=== PATIENT | female | born 2000 | race Caucasian/White ===

== ENCOUNTER 2018-05-22 03:12 | Emergency (ER) | payer BC ==
--- NOTE | 2018-05-22 03:41 | EDPHY ---
H & P Stated Complaint: hyperglycemic, ETOH Time Seen by Provider: 05/22/18 03:17 HPI/ROS: Chief Complaint: Alcohol intoxication, hyperglycemia HPI: 18-year-old type 1 diabetic was out drinking tonight with friends. Patient was feeling unwell in EMS was called. On arrival they noted that her blood sugar was 490. The patient gave herself 8 units of NovoLog. 20 min later her blood sugar was down at about 420. EMS brought her in for further evaluation. The patient admits she does not drink very frequently. She normally carb counts but cannot tell me her ratios at this time. She is taking NovoLog and Lantus. She has never been to the hospital because of her diabetes. She has never been in DKA. ROS: 10 point Review of Systems is negative except as noted in the HPI. PMH: Type 1 diabetes Social History: No smoking, occasional alcohol, no recreational drug use Family History: non-contributory Physical Exam: Gen: Awake, Alert, smells of alcohol, slurred speech HEENT: Nose: no rhinorrhea Eyes: PERRLA, EOMI Mouth: Moist mucosa Neck: Supple, no JVD Chest: nontender, lungs clear to auscultation Heart: S1, S2 normal, no murmur Abd: Soft, non-tender, no guarding Back: no CVA tenderness, no midline tenderness Ext: no edema, non-tender Skin: no rash Neuro: CN II-XII intact, Sensation grossly intact, Strength 5/5 in bilateral upper and lower extremities - Personal History LMP (Females 10-55): 15-21 Days Ago Current Tetanus/Diphtheria Vaccine: Yes - Medical/Surgical History Hx Asthma: No Hx Chronic Respiratory Disease: No Hx Diabetes: Yes Hx Cardiac Disease: No Hx Renal Disease: No Hx Cirrhosis: No Hx Alcoholism: No Hx HIV/AIDS: No Hx Splenectomy or Spleen Trauma: No Other PMH: DM - Social History Smoking Status: Never smoked Constitutional: Initial Vital Signs Temperature (C) 36.7 C 05/22/18 03:15 Heart Rate 96 05/22/18 03:15 Respiratory Rate 16 05/22/18 03:15 Blood Pressure 147/98 H 05/22/18 03:15 O2 Sat (%) 94 05/22/18 03:15 O2 Delivery Mode Room Air Allergies/Adverse Reactions: No Known Allergies Allergy (Verified 05/22/18 03:18) Home Medications: Medication Instructions Recorded Lantus 05/22/18 novoLOG 05/22/18 Medical Decision Making ED Course/Re-evaluation: 0400 Repeat blood sugar 283. 0500 blood sugar is 233. Patient is ambulating unassisted bathroom. Will discharge with a sober ride. - Data Points Laboratory Results: 05/22/18 05/22/18 05:03 04:02 POC Glucose 233 mg/dL H mg/dL 283 mg/dL H mg/dL (70-100) (70-100) Point of Care Test Results: Chemistry 05/22/18 05/22/18 05:03 04:02 POC Glucose 233 mg/dL H mg/dL 283 mg/dL H mg/dL (70-100) (70-100) Departure - Departure Disposition: Home, Routine, Self-Care Clinical Impression: Hyperglycemia, Alcohol intoxication Condition: Good Instructions: Alcohol Intoxication (ED), Diabetic Hyperglycemia (ED) Additional Instructions: Please try to monitor your blood glucose more closely if you're consuming alcohol. Referrals: Patient,NotPresent [Unknown] - As per Instructions
[2018-05-22 05:26] VITALS: BP 118/64
== END 2018-05-22 05:27 | disposition home or self-care (01) ==
DX: E10.65 Type 1 diabetes mellitus with hyperglycemia (principal); F10.920 Alcohol use, unspecified with intoxication, uncomplicated